=== PATIENT | female | born 1960 | race Caucasian/White ===

== ENCOUNTER → 2020-07-04 15:29 | Outpatient (CLI) | payer BC, SELFPAY ==
--- NOTE | ~2020-07-04 | XR_ITS ---
XR_CERV2-3V_CR DATE: 07/04/2020 16:41 INDICATION: Neck pain TECHNIQUE: AP, open-mouth, lateral, swimmer views COMPARISON: None FINDINGS: There is straightening of the cervical spine. C1 and C2 are normally aligned and the odontoid process is intact. No fracture or dislocation or lock ed facet or prevertebral soft tissue swelling. There is mild retrolisthesis and mild degenerative disc disease at C3-4. Mild degenerative disc disease at C4-5. Moderate degenerative disc disease and anterior and posterior spurring at C5-6 and C6-7. IMPRESSION: Multilevel degenerative disc disease, associated mild retrolisthesis at C3-4 Reviewed, dictated and finalized at Location A. Reviewed, dictated and finalized at location A. IMPRESSION: Multilevel degenerative disc disease, associated mild retrolisthesi s at C3-4
--- NOTE | ~2020-07-04 | XR_ITS ---
XR lumbar spine 2-3V DATE: 07/04/2020 16:41 INDICATION: Low back pain TECHNIQUE: Standing AP and lateral and coned lateral lumbosacral views COMPARISON: None FINDINGS: Diffuse osteopenia. Status post lower lumbar laminectomy and posterior and interbody spinal fusion at L3-S1. No fracture or bone destruction is evident. The sacroiliac joints are unremarkable. Status post bilateral tubal ligation. IMPRESSION: Diffuse osteopenia Status post lower lumbar laminectomy and posterior and interbody spinal fusion at L3-S1 Reviewed, dictated and finalized at location A.
== END ==
PROVIDERS: PCP Neurological Surgery; Visit Provider Neurological Surgery
DX: M50.31 Other cervical disc degeneration, high cervical region (principal); M85.88 Other specified disorders of bone density and structure, other site; Z98.1 Arthrodesis status
CPT/HCPCS: 72040; 72100

== ENCOUNTER → 2021-08-15 14:07 | Outpatient (CLI) | payer BC, SELFPAY ==
--- NOTE | ~2021-08-15 | XR_ITS ---
XR lumbar spine min 4V DATE: 08/15/2021 15:06 INDICATION: Low back pain TECHNIQUE: Standing AP and lateral views. Standing flexion and extension lateral views. COMPARISON: 07/04/2020 lumbar spine FINDINGS: Status post lower lumbar laminectomy and posterior and interbody surgical fusion at L3-S1. No instability is noted on flexion or extension. Normal alignment of the lumbar spine. No fracture or bone destruction is detected. Mild degenerative disc disease at L1-2 and L2-3. The sacroiliac joints are intact. Diffuse osteopenia. Bilateral tubal ligation. IMPRESSION: Status post lower lumbar laminectomy and posterior and interbody spinal fusion at L3-S1; no fracture, dislocation or instability is evident Osteopenia Mild degenerative disc disease at L1-2 and L2-3 Reviewed, dictated and finalized at location B. IMPRESSION: Status post lower lumbar laminectomy and posterior and interbody sp inal fusion at L3-S1; no fracture, dislocation or instability is evident Osteopenia Mild degenerative disc disease at L1-2 and L2-3
== END ==
PROVIDERS: PCP Internal Medicine; Visit Provider Neurological Surgery
DX: M54.50 Low back pain, unspecified (principal); Z98.890 Other specified postprocedural states; Z98.1 Arthrodesis status; M85.88 Other specified disorders of bone density and structure, other site; M51.36 Other intervertebral disc degeneration, lumbar region
CPT/HCPCS: 72110

== ENCOUNTER → 2021-09-19 10:43 | Outpatient (CLI) | payer BC, SELFPAY ==
--- NOTE | ~2021-09-19 | MM_ITS ---
EXAMINATION: MM screening ye BI w luisana HISTORY: Screening TECHNIQUE: Craniocaudal and mediolateral oblique 3-D tomosynthesis images were obtained and synthetic 2-D images were generated. CAD analysis was submitted and interpreted. COMPARISON: Comparison to multiple prior studies sequentially, with oldest reviewed study dated 03/30. BREAST PARENCHYMAL COMPOSITION: There are scattered areas of fibroglandular density. FINDINGS: There is no evidence of suspicious mass, calcification, or architectural distortion to sugg est malignancy in either breast. There has been no suspicious interval change. IMPRESSION: 1. No mammographic evidence of malignancy. 2. Recommend routine screening mammography in one year. BI-RADS Category 1: Negative Reviewed, dictated and finalized at location A.
== END ==
PROVIDERS: PCP Internal Medicine; Visit Provider Internal Medicine
DX: Z12.31 Encounter for screening mammogram for malignant neoplasm of breast (principal)
CPT/HCPCS: 77063; 77067

== ENCOUNTER → 2021-09-19 14:01 | Outpatient (CLI) | payer BC, SELFPAY ==
--- NOTE | ~2021-09-19 | MR_ITS ---
EXAMINATION: MR lumbar spine wo/w con DATE: 09/19/2021 14:49 INDICATION: Other intervertebral disc degeneration, lumbar spine. TECHNIQUE: Magnetic resonance imaging (MRI) of the lumbar spine was performed without and with 20 mL MultiHance intravenous contrast. COMPARISON: Lumbar spine radiograph 08/15/2021 FINDINGS: Bone alignment is normal. Vertebral body heights are normal. There are changes of anterior and posterior fusion procedures from L3 to S1 with interbody devices and pedicle screws. There are la minectomies at L4 and L5. Intervertebral disc heights are normal. The distal spinal cord signal inten sity is normal. The conus medullaris is at L1. The following disc levels are specifically discussed: L1-L2: There is a left foraminal protrusion. There is mild bilateral facet joint osteoarthritis. Ther e is mild left neural foraminal stenosis. There is no central canal stenosis. L2-L3: The disc is bulging. There is mild bilateral facet joint osteoarthritis. There is mild bilater al neural foraminal stenosis. There is no central canal stenosis. L3-L4: There is mild right facet joint hypertrophy. There is mild right neural foraminal stenosis. Th ere is no central canal stenosis. L4-L5: There is mild right facet joint hypertrophy. There is mild bilateral neural foraminal stenosis . There is no central canal stenosis. L5-S1: There is mild bilateral facet joint hypertrophy. There is mild bilateral neural foraminal sten osis. There is mild central canal stenosis with posterior decompression. IMPRESSION: 1. Mild lumbar spondylosis. 2. Anterior and posterior fusion procedures from L3 to S1. Reviewed, dictated and finalized at location A.
== END ==
PROVIDERS: Visit Provider Neurological Surgery
DX: M51.36 Other intervertebral disc degeneration, lumbar region (principal); M47.816 Spondylosis without myelopathy or radiculopathy, lumbar region; Z98.1 Arthrodesis status
CPT/HCPCS: 72158; A9577

== ENCOUNTER → 2023-03-26 13:14 | Outpatient (CLI) | payer BC, SELFPAY ==
--- NOTE | ~2023-03-26 | MM_ITS ---
EXAMINATION: MM screening [facility] BI w luisana HISTORY: Screening mammogram TECHNIQUE: Craniocaudal and mediolateral oblique 3-D tomosynthesis images were obtained and synthetic 2-D images were generated. CAD analysis was submitted and interpreted. COMPARISON: 09/19/2021 bilateral screening mammogram BREAST PARENCHYMAL COMPOSITION: The breasts are almost entirely fatty. FINDINGS: Approximately 6 mm circumscribed low-density opacity is noted in the anterior aspect of the lower inner quadrant of the left breast near the inferomedial left subareolar area. Diagnostic left mammogram and targeted left breast ultrasound examination are recommended. 4 mm circumscribed low-density opacity is noted anteriorly in the lower outer quadrant of the right b reast. Diagnostic right mammogram and targeted right breast ultrasound examination are recommended. No significant new or developing density, architectural distortion, malignant calcification, skin thi ckening or retraction of either breast is noted otherwise. IMPRESSION: 1. 6 mm circumscribed mass near the inferomedial subareolar area of left breast 2. 4 mm circumscribed opacity in the anterior lower outer right breast 3. Bilateral diagnostic mammography and bilateral targeted breast ultrasound examination are recommen ded. BI-RADS Category 0: Incomplete: Needs additional imaging evaluation. Reviewed, dictated and finalized at location A. UTER SECURITY SPECIALIST IMPRESSION: 1. 6 mm circumscribed mass near the inferomedial subareolar area of left breast 2. 4 mm circumscribed opacity in the anterior lower outer right breast 3. Bilateral diagnostic mammography and bilateral targeted breast ultrasound ex amination are recommended. BI-RADS Category 0: Incomplete: Needs additional imaging evaluation.
== END ==
PROVIDERS: PCP Internal Medicine; Visit Provider Obstetrics & Gynecology Gynecology
DX: Z12.31 Encounter for screening mammogram for malignant neoplasm of breast (principal)
CPT/HCPCS: 77063; 77067

== ENCOUNTER 2023-04-25 09:25 | Outpatient (CLI) | payer BC, SELFPAY ==
--- NOTE | ~2023-04-25 | MMUS_ITS ---
EXAMINATION: MM diagnostic ye BI w luisana, US breast BI limited HISTORY: 6 mm left and 4 mm right circumscribed mammographic opacities reported on March 26, 2023 b ilateral screening mammogram TECHNIQUE: Additional 3-D tomosynthesis images of both breasts were performed and synthetic 2-D image s were generated. CAD analysis was submitted and interpreted. High resolution targeted bilateral pankaj st ultrasound was performed. COMPARISON: March 26, 2023 bilateral screening mammogram FINDINGS: MAMMOGRAPHIC FINDINGS: There is a 4 mm circumscribed low-density opacity in the anterior outer mid right breast. There is an approximately 7 mm circumscribed low-density opacity in the inferomedial left subareolar area. Both of these lesions have benign mammographic features. Sonographic correlation was obtained. Otherwise no suspicious mass, architectural distortion, malignant calcification, skin thickening or r etraction of either breast is detected. ULTRASOUND: Right breast targeted ultrasound: 9:00 10 cm from nipple: Oval 2.4 x 2.8 x 3.6 mm circumscribed sonolucency without internal vascularit y or posterior shadowing, likely a benign cyst Left breast targeted ultrasound: 8-9:00 subareolar area: 7 x 8 mm circumscribed sonolucency without internal vascularity, with through transmission, consistent with benign simple cyst IMPRESSION: 1. Bilateral benign cysts; no evidence of malignancy 2. Routine annual mammographic screening is recommended BI-RADS Category 2: Benign finding(s). Reviewed, dictated and finalized at location A. Y DRY OPERATOR IMPRESSION: 1. Bilateral benign cysts; no evidence of malignancy 2. Routine annual mammographic screening is recommended BI-RADS Category 2: Benign finding(s).
== END 2023-04-25 09:26 ==
PROVIDERS: PCP Obstetrics & Gynecology Gynecology; Visit Provider Obstetrics & Gynecology Gynecology
DX: R92.8 Other abnormal and inconclusive findings on diagnostic imaging of breast (principal)
CPT/HCPCS: 76642; 77062; 77066; G0279

== ENCOUNTER 2023-09-10 12:30 | Outpatient (CLI) | payer BC, SELFPAY ==
--- NOTE | ~2023-09-10 | DEXA_ITS ---
Bone Density Report Name: RAMOS FITZGERALD Age: 63 Sex: Female Ethnicity: White Date of : 1960 Indication: postmenopausal; screening for osteoporosis; height loss; history of glucocorticoids; Referring Provider: GRACE MENDIOLA Study: Bone densitometry was performed. Exam Date: September 10, 2023 Accession number: [id number] Bone Density: Region BMD T-score Z-score Classification AP Spine(L1, L2) 1.114 1.2 2.6 Normal Femoral Neck (Left) 0.785 -0.6 0.8 Normal Total Hip (Left) 1.030 0.7 1.7 Normal Femoral Neck (Right) 0.814 -0.3 1.0 Normal Total Hip (Right) 1.023 0.7 1.7 Normal Total Hip Mean 1.027 0.7 1.7 Normal World Health Organization criteria for BMD impression classify patients as: Normal (T-score at or above -1.0), Osteopenia (T-score between -1.0 and -2.5), or Osteoporosis (T-score at or below -2.5). 10-year Fracture Risk: FRAX not reported because: All T-scores for Spine Total, Hip Total, Femoral Neck at or above -1.0 Clinical Information Provided by Patient: Has taken Glucocorticoids Has used the following medications: Vitamin D Patient maximum height was 69.0 Menopause Age: 43 Drinks caffeinated beverages Onset of menses at age 14 Number of children 2 Impression: The patient has normal bone mass. The patient has risk factors, including: history of glucocorticoid therapy. Discussion: BONE DENSITY IS ABOVE THE MINIMUM DESIRABLE LEVEL AT ALL SKELETAL SITES TESTED. This patient?s bone mineral density is above the minimum desirable level (T-score -1.0 or better) at all sites measured. The patient should follow a healthful lifestyle (good nutrition with adequate calcium and vitamin D, and appropriate weight-bearing exercise). Follow-Up: Consider repeating this study in 5 years or sooner if there is some new clinical indication. Reported by: LAYO on 09/10/2023 1:03:00 PM. Reviewed, dictated and finalized at location AStevo SANTO
== END 2023-09-10 12:31 | disposition home or self-care (01) ==
LOC: ANHIMG 12:30
PROVIDERS: Visit Provider Advanced Practice Midwife
DX: Z13.820 Encounter for screening for osteoporosis (principal); Z78.0 Asymptomatic menopausal state
CPT/HCPCS: 77080

== ENCOUNTER 2024-03-27 15:45 | Outpatient (CLI) | payer BC, SELFPAY ==
--- NOTE | ~2024-03-27 | MM_ITS ---
EXAMINATION: MM screening ye BI w luisana HISTORY: Screening TECHNIQUE: Craniocaudal and mediolateral oblique 3-D tomosynthesis images were obtained and synthetic 2-D images were generated. CAD analysis was submitted and interpreted. COMPARISON: Comparison to multiple prior studies sequentially, with oldest reviewed study dated 03/30. BREAST PARENCHYMAL COMPOSITION: Not dense: There are scattered areas of fibroglandular density. FINDINGS: There is no evidence of suspicious mass, calcification, or architectural distortion to sugg est malignancy in either breast. There has been no suspicious interval change. IMPRESSION: 1. No mammographic evidence of malignancy. 2. Recommend routine screening mammography in one year. BI-RADS Category 1: Negative Reviewed, dictated and finalized at location B. ING TEACHER
--- OUTSIDE RECORDS SUMMARY | 2024-03-27 15:52 | XMS_ITS | Encounter Summary ---
Author Organization [facility] Facility Care Team Providers Care Aegis Console Operator Track Name Role Phone Vita Beyer MD Primary Care Provider + [phone] Vita Beyer MD Unavailable [phone] Catrachito Velasco MD Unavailable [phone] Man Saunders MD Unavailable [phone] Tooite Pinzon MD Unavailable [phone] Encounter Details Date Type Department Care Team (Latest Contact Info) Description 02/13/2017 Orders Only [facility] CLINCONV ProviderBrennen MD [address] [place] [id number] Social History Tobacco Use Types Packs/Day Years Used Date Smoking Tobacco: Every Day Comments Unknown Sex and Gender Information Value Date Recorded Sex Assigned at Not on file Legal Sex 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 us Historical Provider Final Res ult documented in this encounter Visit Diagnoses Not on filedocumented in this encounter Additional Health Concerns Infection Onset Date Last Indicated Resolved Time COVID: Suspected 05/26/2019 05/26/2019 05/27/2019 8:35 AM CDT Respiratory Infection (JOSEPH), contact + droplet Comment:Automatically added due to negative COVID-19 result. 05/27/2019 05/27/2019 06/10/2019 3:0 5 AM CDT documented as of this encounter Care Teams Aegis Console Operator Track Relationship Specialty Start Date End Date Vita Beyer MD [address] [place] [phone] PCP - General 12/05/17 Vita Beyer MD [address] [place] [address] 12/05/17 10/27/19 Catrachito Velasco MD [address] [place] [phone] Dermatology 10/28/19 Man Saunders MD [address] [address] Consulting Physician Obstetrics and Gynecology 10/28/19 Tootie Pinzon MD [address] [facility] [address] [facility] [address] [place] [address] Referring Physician Gynecology 11/06/23 documented as of this encounter
--- OUTSIDE RECORDS SUMMARY | 2024-03-27 15:52 | XMS_ITS | Encounter Summary ---
Author Organization [facility] Facility Care Team Providers Care Account Executive Healthcare Name Role Phone Vita Beyer MD Primary Care Provider + [phone] Vita Beyer MD Unavailable [phone] Catrachito Velasco MD Unavailable [phone] Man Saunders MD Unavailable [phone] Tootie Pinzon MD Unavailable [phone] Encounter Details Date Type Department Care Team (Latest Contact Info) Description 03/15/2016 Orders Only MMG CLINCONV ProviderBrennen MD [address] [place] [address] Social History Tobacco Use Types Packs/Day Years Used Date Smoking Tobacco: Never Assessed Comments Unknown Sex and Gender Information Value Date Recorded Sex Assigned at Not on file Legal Sex Female 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 us Historical [...] documented as of this encounter Care Teams Account Executive Healthcare Relationship Specialty Start Date End Date Vita Beyer MD [address] [place] [id number] PCP - General 12/05/17 Vita Beyer MD [address] [place] [address] 12/05/17 10/27/19 Catrachito Velasco MD [address] [place] [phone] Dermatology 10/28/19 Man Saunders MD [address] [address] Consulting Physician Obstetrics and Gynecology 10/28/19 Tootie Pinzon MD [address] [facility] [address] [place] [address] Referring Physician Gynecology 11/06/23 documented as of this encounter
--- OUTSIDE RECORDS SUMMARY | 2024-03-27 15:52 | XMS_ITS | Patient Health Summary ---
Author Organization [facility] [employer] Address [address] [place] [address] Care Team Providers Care Pork Cutlet Maker Name Role Phone Unavailable Primary Care Provider Unavailabl e Note from [facility],non-owned Affiliates and Associated Physician Practices is amultiple site organization consisting of ambulatory clinics and hospital sitesin [place], [place], [place] and [place]. This disclosure is being madepursuant to the Care Everywhere program and may not contain all information available regarding this patient. Last updated 17.[facility] Allergies No known active allergies Medications * Be aware that medications may not be up to date on this document. Alwaysverify current medications with the patient. * Ustekinumab (STELARA SC) Social History Tobacco Use Types Packs/Day Years Used Date Smoking Tobacco: Every Day Smokeless Tobacco: Never Sex and Gender Information Value Date Recorded Sex Assigned at Not on file Gender Identity Not on file Sexual Orientation Not on file Last Filed Vital Signs Vital Sign Reading Time Taken Comments Blood Pressure 136/84 04/24/2019 3:03 PM SOLUTION ANALYST Pulse 94 04/24/2019 3:03 PM SOLUTION ANALYST Temperature 36.8 C (98.2 F) 04/24/2019 3:03 PM SOLUTION ANALYST Respiratory Rate 20 04/24/2019 3:03 PM SOLUTION ANALYST Oxygen Saturation 98% 04/24/2019 3:03 PM SOLUTION ANALYST Inhaled Oxygen Concentration - - Weight 97.5 kg (215 lb) 04/24/2019 3:03 PM SOLUTION ANALYST Height 175.3 cm (5' 9 ) 04/24/2019 3:03 PM SOLUTION ANALYST Body Mass Index 31.75 04/24/2019 3:03 PM SOLUTION ANALYST Procedures * INFLUENZA A+B - POINT OF CARE (AMB)(Performed 04/24/2019) Performed for Upper respiratory tract infection, unspecified type Results * INFLUENZA A+B - POINT OF CARE (AMB) (04/24/2019) Influenza A Antigen Rapid Negative Negative Influenza B Antigen Rapid Negative Negative Influenza Internal Control present NEGATIVE - POSITIVE Influenza Lot Number [id number] Influenza Expiration Date Other NASOPHARYNGEAL SWAB / Unknown 04/24/2019 Faustino Deutsch DIRECTOR OF SECURITIES AND REAL ESTATE-MINI [facility]ACCAR[facility] DEALER LAB - POINT OF CARE ORDERABLES
--- OUTSIDE RECORDS SUMMARY | 2024-03-27 15:52 | XMS_ITS | Referral Summary ---
Author Organization [facility] [employer] Address [address] [place] [address] Care Team Providers Care Yard Worker Name Role Phone Unavailable Primary Care Provider Unavailabl e Source Comments [facility] [employer]non-owned Affiliates and Associated Physician Practices is amultiple site organization consisting of ambulatory clinics and hospital sitesin [place], [place], [place] and [place]. This disclosure is being madepursuant to the Care Everywhere program and may not contain all information available regarding this patient. Last updated 17.[facility] [employer] Allergies No known active allergies Medications * Be aware that medications may not be up to date on this document. Alwaysverify current medications with the patient. Medication Sig Dispensed Refills Start Date End Date Status Ustekinumab (STELARA [place]) Active Social History Tobacco Use Types Packs/Day Years Used Date Smoking Tobacco: Every Day Smokeless Tobacco: Never Sex and Gender Information Value Date Recorded Sex Assigned at Not on file Gender Identity Not on file Sexual Orientation Not on file Last Filed Vital Signs Vital Sign Reading Time Taken Comments Blood Pressure 136/84 04/24/2019 3:03 PM DIRECTOR OF MATH Pulse 94 04/24/2019 3:03 PM DIRECTOR OF MATH Temperature 36.8 C (98.2 F) 04/24/2019 3:03 PM DIRECTOR OF MATH Respiratory Rate 20 04/24/2019 3:03 PM DIRECTOR OF MATH Oxygen Saturation 98% 04/24/2019 3:03 PM DIRECTOR OF MATH Inhaled Oxygen Concentration - - Weight 97.5 kg (215 lb) 04/24/2019 3:03 PM DIRECTOR OF MATH Height 175.3 cm (5' 9 ) 04/24/2019 3:03 PM DIRECTOR OF MATH Body Mass Index 31.75 04/24/2019 3:03 PM DIRECTOR OF MATH Plan of Treatment Not on file
--- OUTSIDE RECORDS SUMMARY | 2024-03-27 15:52 | XMS_ITS | Clinical Summary ---
Author Organization [facility] Healthcare Address [address] [place] [address] Care Team Providers Care Medical Transcriber Name Role Phone Vita Beyer MD Primary Care Provider [phone] Catrachito Velasco MD Unavailable [phone] Man Saunders MD Unavailable [phone] Tootie Pinzon MD Unavailable [phone] Allergies Active Allergy Reactions Criticality Noted Date Comments Amoxicillin-Pot Clavulanate Nausea & Vomiting Low 0 10/28/2019 Medications multivitamin tabletIndicatio ns:Vitamin Deficiency Prevention daily. 3 Active Skyrizi 150 mg/mL pen injector 1 Active biotin 1 mg capsule Take by mouth Active acidophilus-pec tin, citrus 100 million cell-10 mg capsule Take by mouth Active SEMAGLUTIDE SUBQ Inject under the skin Active hydroCHLOROthia zide (HYDRODIURIL) 25 mg tabletIndicatio ns:Hypertension , essential Take 1 tablet (25 mg total) by mouth daily 90 tablet 3 4 01/13/20 25 Active semaglutide (Rybelsus) 14 mg tablet Take 1 tablet (14 mg total) by mouth daily Active magnesium gluconate 200 mg tabletIndicatio ns:hypomagnesem ia 1 tablet (200 mg total) Active citalopram (CeleXA) 20 mg tabletIndicatio ns:KERRIE (generalized anxiety disorder) TAKE 1 TABLET BY MOUTH DAILY 90 tablet 3 5 Active citalopram (CeleXA) 20 mg tabletIndicatio ns:KERRIE (generalized anxiety disorder) Take 1 tablet (20 mg total) by mouth daily 90 tablet 3 4 03/03/19 25 Discontinued Active Problems Problem Noted Date Diagnosed Date History of colon polyps 01/27/2024 Overview (01/27/2024): 01/23/2024 Dr. Zaldivar Colonoscopy: A. Colon, ascending, polyp, polypectomy: -Tubular adenoma. B. Colon, polyp at 40 cm, polypectomy: -Sessile serrated adenoma/polyp. C. Rectum, polyp x2, polypectomy: -Hyperplastic polyps. Screening for colon cancer 12/30/2023 Herpes simplex 11/06/2023 Overview (11/06/2023): 1st episode, L sacral root 11/06/2023 Assessment & Plan (11/06/2023 9:09 AM CDT): new problem, left sacral area. first episode. rx valtrex 1000 mg q 12 x 7d, call if has recurrence for 500 mg q12 x 3 days per recurrence Urge incontinence of urine 11/02/2022 Assessment & Plan (11/02/2022 9:29 AM CDT): Wearing a pad Do the kegels Lose weight See [employer]ER Hypertension, essential 10/26/2020 Overview (10/31/2021): July 2020 Myocardial perfusion Stress test Oct 21, 2020, Dr Phillips NORMAL Amlodipine started 5mg 10/2020, now off amlodpine Only on HCTZ Released by Dr Phillips Interpretation summary: 1. No reversible or fixed perfusion defects to indicate myocardial ischemia or infarct 2. Normal left ventricular ejection fraction 3. No evidence of transient ischemic dilatation 4. No EKG changes diagnostic for ischemia post exercise testing at 7 METS, 6 minutes on the Maximo protocol, 100 % age predicted maximum heart rate. 5. Lee treadmill score of +7 indicated of low annual risk for major adverse cardiac events. 6. No clinically significant arrhythmias noted with exercise. 7. Hypertensive response to exercise Assessment & Plan (11/02/2022 9:21 AM CDT): Bp controlled Cont same rx regimen Assessment & Plan (10/31/2021 9:21 AM CDT): now off amlodpine Only on HCTZ Released by Dr Phillips BP controlled Cont same Down 30 lbs Assessment & Plan (10/26/2020 9:30 AM CDT): Today BP is good at 128/78 with recent start of amlodipine 5mg only Ff low sodium diet Ff up with dr Phillips next week KERRIE (generalized anxiety disorder) 10/26/2020 Overview (10/31/2021): Hx of panic attacks On celexa therapy Assessment & Plan (11/06/2023 9:15 AM CDT): Hx of panic attacks Feels lately a little more anxious Worrier Cont on celexa theapy at same dose Reluctant to increase the dosage, trying to lose wt Assessment & Plan (11/02/2022 9:32 AM CDT): Cont on celexa theapy, stable and wishes to continue Assessment & Plan (10/31/2021 7:56 AM CDT): Given hx of panic attacks, cont on celexa therapy Assessment & Plan (10/26/2020 9:38 AM CDT): Might have contributed to elevated BP and symptoms Did not take or need the anxiolytic Better now Continue on celexa 20mg daily Abnormal glucose 10/26/2020 Overview (10/26/2020): Biological father had DM, stroke and psoriasis Assessment & Plan (11/06/2023 9:12 AM CDT): Resolved A1c is normal now Continue to try and avoid sugars and diet. Exercise and work on weight loss. Assessment & Plan (11/02/2022 9:32 AM CDT): Normal A1c 5.5 Now on mounjaro thru wt loss clinic Assessment & Plan (10/31/2021 9:22 AM CDT): fam hx of DM in biologic father a1c 5.9 Cont to Exercise and lose wt Was on modified keto diet, likely why chol increased some Ff mediterranean diet Avoid sugars in diet Assessment & Plan (10/26/2020 9:57 AM CDT): Cont to trend, repeat a1c Work on wt loss Cigarette nicotine dependence in remission 08/30 Assessment & Plan (11/02/2022 9:33 AM CDT): Quit in 2019 The patient is at HIGH RISK for developing lung cancer. Patient has met inclusion criteria for sceening. Patient is within the age of 55 to 77. Smoking status determined. The patient has a smoking history of at least 30 pack years. Patient is asymptomatic and has no signs of lung cancer at this time. We have discussed the pros and cons of lungs cancer screening. The patient is wanting cancer treatment should it be discovered. 1.Patient was made aware that lung nodules are common in smokers and maybe found during the exam. Additional observation or testing may be necessary and most patients were call Back will not be determined to have lung cancer. A small number of people will need a biopsy but this is not common. A small number people will have a biopsy that may have a complication, but this is rare. 2. There is a potential for over treatment. Lung cancer screening make find a lung cancer that may not cause symptoms are require treatment during the patient's lifetime. However lung cancers may be lethal if not treated. 3. Low-dose CT scanning will expose the patient to a small amounts of radiation. The dose is equal to the normal amount of environmental radiation people experience over 6 month period. In this case, we have determined to find the benefits of screening to outweigh the small risk of radiation exposure. There is a very small chance that an annual Low Dose CT scan over many years could cause cancer to develop. 4. It is important to adhere to the Annual Lung Cancer Low-dose CT screening, the patient is able and willing to undergo diagnosis treatment should cancer be identified. 5. Smoking abstinence intervention is important. The patient is counseled on the importance of maintaining cigarette smoking abstinence if a former smoker and the importance of smoking cessation if a current smoker. Current smoker will be provided with information about smoking cessation interventions. 6. Detection of lung cancer could impact other comorbidities (coexisting illnesses). The patient is willing to undergo diagnosis and treatment for lung cancer. After this discussion above the Patient is agreeable to proceed with screening. An order will be placed for a low-dose CT for lung cancer screening. Assessment & Plan (10/26/2020 9:49 AM CDT): No longer smoking Quit 10/16/2019 Family history of coronary artery disease 2020 History of COVID-19 02/21/2020 Overview (03/09/2020): Tested positive 02/29/2020 Gi sx and some uri but resolved Assessment & Plan (10/26/2020 9:55 AM CDT): No residuals resolved History of lumbar surgery 06/09/2018 Overview (06/09/2018): 10/29/2017 Dr Causey, lumbar disc surgery, L3-L5 . Wearing a bone growth stimulator daily. Assessment & Plan (10/26/2020 9:55 AM CDT): Continues with back pain. No longer using the bone growth stimulator Surgery 10/29/2017 Dr Causey, 3 yrs now since surgery Likely this is as good its going to get, hoping once the psoriatic arthritis gets controlled, perhaps her back pain will improve Assessment & Plan (06/09/2018 12:11 PM CDT): Symptoms have improved significantly. Sciatica resolved. Good back care. Exercise and wt loss. Class 1 obesity due to exces s calories with serious comorbidity and body mass index (BMI) of 34.0 to 34.9 in adult 06/09/2018 Assessment & Plan (11/06/2023 9:12 AM CDT): Cont wt loss with ozempic therapy, down 40 lbs and continues to lose wt Cont under [facility] program for wt loss Did not respond to mounjaro, did not lose wt Assessment & Plan (11/02/2022 9:31 AM CDT): Worsening Weight is back up again Work on wt loss Exercise regularly, try swimming if the does not affect jts Patient is on mounjaro therapy just started early 10/2022 thru the wt loss clinic Expect wt to drop Assessment & Plan (10/31/2021 9:19 AM CDT): Improving Down 30 lbs Cont modified keto diet and exercise Control food poritons Assessment & Plan (10/26/2020 9:18 AM CDT): Work on wt loss Exercise regularly Improve diet and food portions At risk for DM and other complications related to obesity Assessment & Plan (10/28/2019 11:18 AM CDT): Work on attempts to lose weight about 1 lb a week. Join a wt loss program if necessary. Try to reach for BMI under 30. Exercise regularly, Limit carbs and sugars. Control portion intake. Consume 6-8 8oz glasses of water daily. BMI Follow-up includes: nutrition counseling, exercise counseling and education provided. Assessment & Plan (06/09/2018 12:17 PM CDT): Work on attempts to lose weight about 1 lb a week. Join a wt loss program if necessary. Try to reach for BMI under 30. Exercise regularly, Limit carbs and sugars. Control portion intake. Consume 6-8 8oz glasses of water daily. Annual physical exam 06/09/2018 Assessment & Plan (11/06/2023 9:10 AM CDT): Reviewed previous labs and diagnostic test results. Chronic medical problems evaluated and management plans discussed with the patient. Prescription medications, supplements, vitamins and immunizations reviewed. Wear seatbelts. Use sunscreen. Discussed healthy diet and disease prevention. Recommend moving towards a plant based diet. Discussed importance of scheduling recommended screening tests. Discussed importance of regular physical examinations for health maintenance. Assessment & Plan (11/02/2022 9:14 AM CDT): Reviewed previous labs and diagnostic test results. Chronic medical problems evaluated and management plans discussed with the patient. Prescription medications, supplements, vitamins and immunizations reviewed. Wear seatbelts. Use sunscreen. Discussed healthy diet and disease prevention. Recommend moving towards a plant based diet. Discussed importance of scheduling recommended screening tests. Discussed importance of regular physical examinations for health maintenance. Discussed importance of a living will, advanced directives and establishing or updating healthcare power of traffic law attorney document and providing our office with a copy. Assessment & Plan (10/31/2021 7:54 AM CDT): Update preventive care tdap due Mammogram due Reviewed previous labs and diagnostic test results. Chronic medical problems evaluated and management plans discussed with the patient. Prescription medications, supplements, vitamins and immunizations reviewed. Wear seatbelts. Use sunscreen. Discussed healthy diet and disease prevention. Recommend moving towards a plant based diet. Discussed importance of scheduling recommended screening tests. Discussed importance of regular physical examinations for health maintenance. Discussed importance of a living will, advanced directives and establishing or updating healthcare power of traffic law attorney document and providing our office with a copy. Assessment & Plan (10/26/2020 9:40 AM CDT): Reviewed previous labs and diagnostic test results. Chronic medical problems evaluated and management plans discussed with the patient. Prescription medications, supplements, vitamins and immunizations reviewed. Wear seatbelts. Use sunscreen. Discussed healthy diet and disease prevention. Recommend moving towards a plant based diet. Discussed importance of scheduling recommended screening tests. Discussed importance of regular physical examinations for health maintenance. Assessment & Plan (10/28/2019 11:17 AM CDT): Wear sunscreen with SPF over 50 while outdoors. Wear sun protective head wear and clothing if planning to stay outdoors exposed to the direct sunlight for extended hours. Wear seatbelts while in a vehicle. Do not TEXT and DRIVE Do not DRINK and DRIVE. Drink responsibly Follow a heart healthy diet and lifestyle. Consume 5-7 servings of fruits and vegetables a day.. Such as the Mediterranean Diet. Maintain/attain normal body weight. Exercise regularly, minimum 20 mins 3 days a week to reduce cardiovascular healthy. Maintain good sleep schedule and sleep habits I recommend that all patients follow a diet that is high in fruits and vegetables and low in processed foods such as sugar and foods that are made with white flour. I recommend using beneficial fats such as olive oil, nuts, seeds and berries and avoiding saturated animal fats. Please stay physically active to the extent that you are physically able to. Test results: if you have not received communication about test results within 7 days of the test being performed, please contact the office. I strongly encourage [employer] sign ups. It can facilitate communication flow. Please contact the office for instructions on signing up. Consider getting Shingrix (shingles vaccine). This is a 2-shot series with each injection given 2-6 months apart. You can obtain the vaccine at most major pharmacies without a prescription Assessment & Plan (06/09/2018 12:26 PM CDT): Wear sunscreen while outdoors. Wear seatbelts while in a vehicle. Do not text and drive. Follow a heart healthy diet and lifestyle. Consume 5-7 servings of fruits and vegetables a day. Maintain/attain normal body weight. Maintain good sleep schedule and sleep habits. I recommend that all patients follow a diet that is high in fruits and vegetables and low in processed foods such as sugar and foods that are made with white flour. I recommend using beneficial fats such as olive oil, nuts, seeds and berries and avoiding saturated animal fats. Please stay physically active to the extent that you are able. Test results: if you have not received communication about test results within 7 days of the test being performed, please contact the office. Consider getting Shingrix (shingles vaccine). This is a 2-shot series with each injection given 2-6 months apart. 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 Dr Ritchie dermatology tried Cosentyx (did not work well and became non formulary), then Otezla (worsened) To try Skyrizi next Derm: Dr Ritchie Assessment & Plan (11/06/2023 5:38 PM CDT): Stable Dr Diaz torres is now managing,stable on rx Skyrizi injections, dong better than previoius biologics tried in the past: Humira (axillary lymph node complication), methotrexate (pills made her sick, osteoporosis of the jaw), Cosentyx, (did not work well and became non formulary), Otezla (worsened lesions) Assessment & Plan (10/26/2020 9:48 AM CDT): Worsening Dr Diaz torres is now managing, plans to change Otezla to Skyrizi Assessment & Plan (10/28/2019 11:39 AM CDT): Stable on cosentyx therapy Cont under derm dr ritchie Benign paroxysmal positional vertigo 07/13/2015 High blood cholesterol level 07/13/2015 Overview (11/02/2022): July 2020 Myocardial perfusion Stress test Oct 21, 2020, Dr Phillips NORMAL statin in past, made her sick (nauseaous) Assessment & Plan (11/02/2022 9:30 AM CDT): No labs this yr, will order next yr, patient working on diet and wt loss Assessment & Plan (10/31/2021 9:24 AM CDT): HDL is better Change mod keto diet, healthier protein sources Exercise High fiber diet Assessment & Plan (06/09/2018 12:18 PM CDT): Order lipids, will call if needs to start a statin med or just change up diet. Will calculate cv risk score once labs available. Stop smoking all together that affects chol level. Mild episode of recurrent major depressive disor phyllis 07/12/2015 Overview (10/31/2021): On celexa 20mg Hx of panic attacks Assessment & Plan (11/06/2023 9:13 AM CDT): Stable on celexa therapy Hx of panic attacks Cont same regimen Assessment & Plan (11/02/2022 9:29 AM CDT): Stable on celexa therapy Hx of panic attacks Cont same regimen Assessment & Plan (10/31/2021 7:55 AM CDT): Stable on celexa therapy Hx of panic attacks Cont same Assessment & Plan (10/26/2020 9:53 AM CDT): Stable on celexa 20mg in am and 10mg in pm, considering all her responsibilities at work and with family phq9 screen today score of 5 Wishes to continue therapy, helping Take celexa 20mg once daily see if able to just take 20 mg daily and stop the 10mg in pm Refill today Assessment & Plan (10/28/2019 11:25 AM CDT): Stable on celexa therapy Cont the same. Assessment & Plan (06/09/2018 12:17 PM CDT): Very mild, mostly anxiety. Resume celexa therapy Resolved Problems Problem Noted Date Diagnosed Date Resolved Date Urinary urgency 10/31/2021 11/06/2023 Assessment & Plan (10/31/2021 9:30 AM CDT): occly when coughs or sneezes, leaks Been doing kegels, cont to do pelvic floor exercises Keep bowels regular avoid constipation Palpitations 08/30/2020 11/06/2023 Precordial pain 08/30/2020 11/06/2023 Overview (08/30/2020): likely panic attacks. Advise counselor for CBT and vistaril prn. Would still suggest seeing cardiology given no h/o panic attacks in the past. Telehealth encounter for confirmed COVID-19 03/09/2020 10/26/2020 Assessment & Plan (03/09/2020 12:37 PM TIP MENDER): Recovered No more symptoms for over 24 hrs now Quarantined for 2 wks Plans to RTW on 03/14/2020 Letter to rtw on Saturday03/14/2020 Attn Kortney Diaz Material Engineer Fax [phone] Ok to rtw on feb. Full recovered from covid infection. Completed full 14 day quarantine period. No longer having covid symptoms. Anxiety 06/09/2018 10/26/2020 Overview (06/09/2018): Hx of celexa 40mg use Assessment & Plan (06/09/2018 12:08 PM CDT): Since anxiety is up some, will resume celexa therapy. This time will try 20mg and in 4 wks if feels 40mg dose is better ok to increase. Call at that time for new dose rx. Sciatica of left side 12/18/20162018 Overview (06/09/2018): 10/2017 Lumbar disc surgery L3-L5 Dr Causey at [facility] Assessment & Plan (06/09/2018 12:06 PM CDT): resolved Elevated blood pressure read ing without diagnosis of hypertension 07/12/2015 06/09/2018 Pain in the shoulder 07/22/2013 021 Encounters Date Type Department Care Team Description 01/30/2024 Telephone [facility] Primary Care [address] [place] [address] [place] [phone] Vita Beyer MD 01/23/2024 9:28 AM TIP MENDER Anesthesia Event [facility] [address] [place] [address] Roxana Rice MD Jobe, Jennifer R., CRNA 01/23/2024 9:00 AM TIP MENDER - 01/23/2024 9:30 AM TIP MENDER Surgery [facility] [address] [place] [address] Christian Zaldivar MD COLON REMOVAL SNARE 01/23/2024 7:55 AM TIP MENDER - 01/23/2024 11:10 AM TIP MENDER Hospital Encounter [facility] [address] [place] [address] Christian Zaldivar MD Screening for colon cancer Discharge Disposition: Discharge to home or self care 12/30/2023 Orders Only [facility] at [place] [address] [facility] [facility] [address] [place] [phone] Christian Zaldivar MD Screening for colon cancer (Primary Dx) 12/26/2023 Telephone [facility] Primary Care [address] [place] [address] Vita Beyer MD Medication Request from Last 3 Months Immunizations Name Administration Dates Next Due Influenza, Quadrivalent, Blessing l Culture-based MDCK, Preservative Free, Antibiotic Free, Intramuscular 03/05/2019 Influenza, Quadrivalent, Spl it, Preservative Free, Intramuscular 11/02/2022,10/31/2021,12/11/2017 Influenza, Trivalent, IM (MDV) 12/18/2016 Influenza, Trivalent, Preser vative Free, Intramuscular 11/06/2023,11/15/2015,12/03/2014,12/24,01/19/2013 Moderna SARS-CoV-2 Monovalen t Vaccination (12+ YRS) 04/28/2020,03/31/2020 PPD TEST 03/24/2014 Pneumococcal Conjugate PCV 13 12/20/2015 Pneumococcal Polysaccharide PPV23 01/19/2013,02/2012 Tdap 11/02/2022,08/19/2011 ZOSTER Recombinant 12/28/2019,10/28/2019 Surgical History Surgery Date Site/Laterality Comments APPENDECTOMY BREAST LUMPECTOMY TONSILLECTOMY ABLATION uterine SPINE SURGERY October 29, 2017 Medical History Medical History Date Comments Sciatica of left side 12/18/201610/2017 Rachna mbar disc surgery L3-L5 Dr Causey at [facility] Elevated blood pressure read ing without diagnosis of hypertension 07/12/2015 Palpitations Anxiety Arthritis Autoimmune disease (CMS/HCC) (HCC) 02/18/1981 psoriasis Family History * Patient is adopted Medical History Relation Name Comments Alcohol abuse Father Alber Arthritis Father Alber Diabetes Father Alber Hypertension Father Alber Psoriasis Father Alber Family history of psoriasis - (Added by TW Conv) Stroke Father Alber Family history of cerebrovascular accident - (Added by TW Conv) Heart attack Maternal Grandmother Evelyn Heart disease Maternal Grandmother Evelyn Macular degeneration Maternal Grandmother Evelyn Vision loss Maternal Grandmother Evelyn Degenerative Disk Disease Mother Family history of degenerative disc disease - (Added by TW Conv) Cancer Mother's Sister Gardenia Plunkett Heart attack Paternal Grandfather Relation Name Status Comments Father Alber Maternal Grandmother Evelyn Mother Mother's Sister Gardenia Plunkett Paternal Grandfather Social History Tobacco Use Types Packs/Day Years Used Date Smoking Tobacco: Former Cigarettes 1 41 0 10/27/1981 - 10/16/2019 Smokeless Tobacco: Never Tobacco Cessation:Counseling Given: Not Answered Comments:Quit around hubsband heart sx 10/17/19 Per telephone call for lung screen Uses vape (last vaped at 0730) Alcohol Use Standard Drinks/Week Comments Yes 0 (1 standard drink = 0.6 oz pur e alcohol) AUDIT-C Answer Date Recorded Q1: How often do you have a drink containing alcohol? Never 01/23/2024 Q2: How many drinks containi ng alcohol do you have on a typical day when you are drinking? Patient does not drink Q3: How often do you have si x or more drinks on one occasion? Never 01/23/2024 PHQ-2 Answer Date Recorded PHQ-2 Total Score (If total score is 3 or more points, staff should administer the PHQ-9) 2 11/06/2023 Personal Safety Answer Date Recorded Have you ever been in or are you currently in a harmful physical or emotional relationship or is someone making you feel afraid or unsafe? 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 Not on file Not on file Obstetrics History Last Filed Vital Signs Vital Sign Reading Time Taken Comments Blood Pressure 146/63 01/23/2024 10:30 AM TIP MENDER Pulse 63 01/23/2024 10:30 AM TIP MENDER Temperature 36.2 C (97.2 F) 01/23/2024 9:55 AM TIP MENDER Respiratory Rate 15 01/23/2024 10:30 AM TIP MENDER Oxygen Saturation 99% 01/23/2024 10:30 AM TIP MENDER Inhaled Oxygen Concentration - - Weight 105.7 kg (233 lb) 01/23/2024 8:10 AM TIP MENDER Height 175.3 cm (5' 9 ) 11/06/2023 8:28 AM CDT Body Mass Index 34.41 11/06/2023 8:28 AM CDT Plan of Treatment Health Maintenance Due Date Last Done Comments Hepatitis B Screening 1980 Cervical Cancer Screening 05/07/2016 05/08/2015, Covid-19 Vaccine ( season) 2023 04/28/2020, 03/31/2020 Breast Cancer Screening-Mammogram 03/26/2024 03/26/2023, 09/19/2021, 01/17/2016, Additional history exists Lung Cancer Screening 06/11/2024 06/11/2023, 023 Depression Screening 11/05/2024 11/06/2023, 11/06/2023, 11/02/2022, Additional history exists Regular Well Visit/Exam 18-64 11/05/2024 11/06/2023, 11/02/2022, 10/31/2021, Additional history exists Colon Cancer Screening-Colonoscopy 01/22/2027 01/23/2024, 06/09/2013 DTaP/Tdap/Td Vaccine (3 - Td or Tdap) 11/02/2032 11/02/2022, 08/19/2011 Hepatitis C Screening Completed 10/21/2012 Pneumococcal vaccine <65 Aged Out 016, 01/19/2013, 12/19/2012 No longer eligible based on patient's age to complete this topic Zoster Vaccine Completed 12/28/2019, 10/28/2019 Influenza Vaccine Completed 11/06/2023, , 10/31/2021, Additional history exists Colon Cancer Screening-CT Colonography Discontinued 01/23/2024, 06/09/2013 Colon Cancer Screening-DNA Stool Discontinued 01/23/2024, 06/09/2013 Colon Cancer Screening-FIT Discontinued 01/23/2024, Colon Cancer Screening-Sigmoidoscopy Discontinued 01/23/2024, 06/09/2013 Medical Devices Implanted Type Area Undercutter Device Identifier Shelf Expiration Date Model / Serial / Lot Cages And Rods In Lumbar L4,5 &S1 N/A: Back Procedures Procedure Name Priority Date/Time Associated Diagnosis Comments SURGICAL PATHOLOGY Routine 01/23/2024 9: 39 AM TIP MENDER Screening for colon cancer ENDO ADD ON COLON BIOPSY 01/23/2024 9:28 AM TIP MENDER Screening for colon cancer COLON REMOVAL SNARE 01/23/2024 9 :28 AM TIP MENDER Screening for colon cancer COLONOSCOPY 01/23/2024 9:[address] CHEST WO CONTRAST F/U LUNG SCREEN PROTOCOL Schedule Routine, Read Routine (OP Routine) 06/11/2023 9:04 AM CDT Cigarette nicotine dependence in remission Lung nodule seen on imaging study MAMMOGRAPHY Routine 03/26/2023 PAP SMEAR WITH HPV Routine 05/08/2015 SERUM HEPATITIS C AB Routine 10/21/2012 5:45 AM CDT from Last 3 Months or Most Recently Relevant to Health Maintenance Results * Surgical pathology (01/23/2024 9:39 AM TIP MENDER) Tissue (Colon, Biopsy) 01/23/2024 9:39 AM TIP MENDER Tissue (Polyp(s), colon/colorectal, esophageal, gastric) 01/23/2024 9:46 AM TIP MENDER Tissue (Polyp(s), colon/colorectal, esophageal, gastric) 01/23/2024 9:50 AM TIP MENDER Narrative PATHOLOGY [facility] - 01/24/2024 5:00 PM TIP MENDER [facility] Department of Pathology [address] [place] [address] Note to Patients: This report may contain a detailed description of human tissue sent by a health care provider to the laboratory for pathologic evaluation. The content of this report is essential for diagnosis and may provide important critical findings. This information may be unfamiliar to patients to review without a medical professional present. It is advised that the patient review this report in the presence of a health care provider who can answer questions and explain the details. Final Report Patient Name: RUTHIE EDDY : 1960 (Age: 63) Gender: F Address: [address] [place] [address] Hospital #: [id number] Service: Gastro Location: Patient Type: [facility] OUTPATIENT Taken: 01/23/2024 Received: 01/23/2024 Accessioned: 01/23/2024 Reported: 01/24/2024 Physician(s): Anne-Marie Payton M.D. Diagnosis: A. Colon, ascending, polyp, polypectomy: -Tubular adenoma. B. Colon, polyp at 40 cm, polypectomy: -Sessile serrated adenoma/polyp. C. Rectum, polyp x2, polypectomy: -Hyperplastic polyps. Art nEgland MD, PHD Report Electronically Reviewed and Signed Out By Art England MD, PHD 01/24/2024 17:00:32 Specimen(s) Received: A: Ascending colon polyp (cold bx) B: Polyp at 40 cm (hot snare) C: Rectal polyp x2 (hot snare) Microscopic Description: Unless gross-only is specified, the final diagnosis for each specimen is based on a microscopic examination of each tissue sample. Clinical History: The patient is a 63-year-old woman presenting for colon cancer screening. Operative procedure: Colonoscopy with biopsy. Gross Description Received in three formalin jars labeled with the patient's identifiers. A. Labeled ascending colon polyp (cold Bx) and consists of two gomez tissue fragments measuring 0.1 cm and 0.3 cm. Entirely submitted. Labeled A1. Jar 0. B. Labeled polyp at 40 cm (hot snare) and consists of a 1.0 x 0.6 x 0.6 cm gomez- red, polypoid tissue with an identifiable resection margin (inked black). The specimen is trisected and entirely submitted. Labeled B1. Jar 0. C. Labeled rectal polyp x2 (hot snare) consists of two gomez-pink tissue fragments admixed with debris, measuring 0.5 cm and 0.6 cm. Entirely submitted. Labeled C1. Jar 0. jjmhb/01/23/2024 13:08 SERGE Genao PA (ASCP) Microscopic slide review and interpretation for this case was performed at [facility], Department of Surgical Pathology, [address] [facility] [id number], [place] [address] CLIA # [id number] us Christian Zaldivar MD LAB PATHOLOGY ORDERABLES Final R esult PATHOLOGY [facility] * Colonoscopy (01/23/2024 9:27 AM TIP MENDER) Anatomical Region Laterality Modality Other Narrative Procedure Note Christian Zaldivar MD - 01/23/2024 9:27 AM CST [facility] GI ENDOSCOPY Patient Name: Ruthie Eddy Procedure Date: 01/23/2024 9:27 AM Date of : 1960 Admit Type: Outpatient Age: 63 Gender: Female Attending MD: Christian Zaldivar M.D. Room: [facility] ENDOSCOPY ROOM 03 Note Status: Finalized Procedure: Colonoscopy Indications: Screening for colorectal malignant neoplasm Referring MD: Providers: Christian Zaldivar M.D. Medicines: Monitored Anesthesia Care Complications: No immediate complications. Estimated Blood Loss: Estimated blood loss: none. Procedure: Pre-Anesthesia Assessment: - Prior to the procedure, a History and Physicalwas performed, and patient medications and allergieswere reviewed. The risks and benefits of the procedureand the sedation options and risks were discussed withthe patient. All questions were answered and informed consent was obtained. Patient identification and proposed procedure were verified. After reviewingthe risks and benefits, the patient was deemed in satisfactory condition to undergo the procedure.The anesthesia plan was to use monitored anesthesiacare (MAC). Immediately prior to administration of medications, the patient was re-assessed foradequacy to receive sedatives. The heart rate, respiratory rate, oxygen saturations, blood pressure, adequacyof pulmonary ventilation, and response to care were monitored throughout the procedure. The physical status of the patient was re-assessed after the procedure. The benefits, risks and alternatives of theprocedure and sedation were discussed and informed consentwas obtained. All questions were answered. Please referto the signed informed consent document in the medical record. The scope was passed under direct vision.The [id number] was introduced through theanus and advanced to the cecum, identified byappendiceal orifice and ileocecal valve. The colonoscopy was performed without difficulty. The patient tolerated the procedure well. The quality of the bowel preparation was good. Scope withdrawal time was 13 minutes. Prep was administered in a split dose. Findings: The perianal and digital rectal examinations were normal. A diminutive polyp was found in the ascending colon. The polyp was removed with a cold biopsy forceps. Resection and retrieval were complete. A 20 mm polyp was found at 40 cm proximal to the anus. The polyp was sessile. The polyp was removed with a hot snare. Resection andretrieval were complete. To prevent bleeding post-intervention, one hemostatic clip was successfully placed. There was no bleeding at the end of the procedure. Two sessile polyps were found in the rectum. The polyps were 10 mm in size. These polyps were removed with a hot snare. Resection and retrieval were complete. Non-bleeding internal hemorrhoids were found during retroflexion. The hemorrhoids were small. The exam was otherwise without abnormality. Impression: - One diminutive polyp in the ascending colon,removed with a cold biopsy forceps. Resected andretrieved. - One 20 mm polyp at 40 cm proximal to the anus, removed with a hot snare. Resected and retrieved.Clip was placed. - Two 10 mm polyps in the rectum, removed with ahot snare. Resected and retrieved. - Non-bleeding internal hemorrhoids. - The examination was otherwise normal. Recommendation: - Patient has a contact number available for emergencies. The signs and symptoms of potential delayed complications were discussed with thepatient. Return to normal activities tomorrow. Written discharge instructions were provided to thepatient. - High fiber diet. - Continue present medications. - Await pathology results. - Repeat colonoscopy in 3 years for surveillance. Christian Zaldivar M.D. Christian Zaldivar M.D. 01/23/2024 9:54:15 AM . Number of Addenda: 0 Note Initiated On: 01/23/2024 9:27 AM Recognized by the [employer] [place] [employer] for promoting quality in endoscopy us Christian Zaldivar MD ENDOSCOPY PROCEDURES Final Resul t * CT Chest WO Contrast F/U Lung Screen Protocol (06/11/2023 9:04 AM CDT) Anatomical Region Laterality Modality Chest N/A Computed Tomogra phy 06/11/2023 11:5 2 AM CDT Narrative 06/11/2023 12:02 PM CDT EXAM DESCRIPTION: CT CHEST WO CONTRAST F/U LUNG SCREEN PROTOCOL REASON FOR STUDY: Screening CT of the chest in a former smoker with a 40 pack year smoking history. Additional history: Stopped smoking age 59. TECHNIQUE: Low dose CT scan of the chest was performed without intravenous contrast using helical scanning technique. The exam extends from the lung apices through the lung bases. Automatic exposure control was used as a dose optimization technique. RADIATION DOSE: CT dose index volume (CTDIvol) = 2.89 mGy COMPARISON: CT chest 12/05/2022 FINDINGS: SMOKING RELATED LUNG DISEASE: Minimal emphysema. LUNG NODULES: Unchanged 6 mm solid nodule in the right lower lobe on image 177. Unchanged 5 mm solid nodule in the peripheral right lower lobe on image 172. Unchanged 5 mm nodule abutting the left major fissure on image 117. Unchanged 3 mm solid nodule in the right upper lobe on image 65. No new pulmonary nodules appreciated. CORONARY ARTERY CALCIFICATION: None appreciated. OTHER: No pleural effusion or pneumothorax. There are minimal areas of scarring. The central airways are patent. Heart size is normal. No pericardial effusion or thickening. Thoracic aorta is normal in course and caliber and contains a tiny amount of calcified atherosclerotic plaque. There are no enlarged mediastinal, hilar, or axillary lymph nodes. The visualized portions of the upper abdomen are unremarkable. There is no suspicious osseous lesion. There are mild degenerative changes of the thoracic spine. IMPRESSION: Unchanged pulmonary nodules measuring up to 6 mm. No new pulmonary nodule. Minimal emphysema. Lung-RADS category 2: Benign appearance or behavior. Recommendation: Low dose Screening CT of chest in 12 months. THIS IS AN ELECTRONICALLY VERIFIED FINAL REPORT 06/11/2023 12:02 PM - Electronically signed by Adin Vazquez M.D. AM: AM Report ID: [id number] Reading Location: [place] [address] Procedure Note Adin Vazquez MD - 06/11/2023 EXAM DESCRIPTION: CT CHEST WO CONTRAST F/U LUNG SCREEN PROTOCOL REASON FOR STUDY: Screening CT of the chest in a former smoker with a40 pack year smoking history. Additional history: Stopped smoking age 59. TECHNIQUE: Low dose CT scan of the chest was performed without intravenous contrast using helical scanning technique. The exam extends from the lung apices through the lung bases. Automatic exposure control was used as adose optimization technique. RADIATION DOSE: CT dose index volume (CTDIvol) = 2.89 mGy COMPARISON: CT chest 12/05/2022 FINDINGS: SMOKING RELATED LUNG DISEASE: Minimal emphysema. LUNG NODULES: Unchanged 6 mm solid nodule in the right lower lobe on image 177. Unchanged 5 mm solid nodule in the peripheral right lower lobe on [id number]. Unchanged 5 mm nodule abutting the left major fissure on image 117. Unchanged 3 mm solid nodule in the right upper lobe on image 65. No new pulmonary nodules appreciated. CORONARY ARTERY CALCIFICATION: None appreciated. OTHER: No pleural effusion or pneumothorax. There are minimal areas of scarring. The central airways are patent. Heart size is normal. No pericardial effusion or thickening. Thoracic aorta is normal in courseand caliber and contains a tiny amount of calcified atherosclerotic plaque.There are no enlarged mediastinal, hilar, or axillary lymph nodes. Thevisualized portions of the upper abdomen are unremarkable. There is no suspicious osseous lesion. There are mild degenerative changes of the thoracicspine. IMPRESSION: Unchanged pulmonary nodules measuring up to 6 mm. No newpulmonary nodule. Minimal emphysema. Lung-RADS category 2: Benign appearance or behavior. Recommendation: Low dose Screening CT of chest in 12 months. THIS IS AN ELECTRONICALLY VERIFIED FINAL REPORT 06/11/2023 12:02 PM - Electronically signed by Adin Vazquez M.D. AM: AM Report ID: [id number] Reading Location: [place] [address] Vita Beyer MD IMG CT PROCEDURES Final Resu lt * MAMMOGRAPHY (03/26/2023) Mammography Normal Historical Provider HEALTH MAINTENANCE Final Result * PAP SMEAR WITH HPV (05/08/2015) Pap smear Unknown Historical Provider HEALTH MAINTENANCE Final Result * Serum Hepatitis C ab (10/21/2012 5:45 AM CDT) HCV ab Negative NEG HISTORICAL RESULTS Comment: Interpretive Data If confirmation is required, call Laboratory Customer Service to request sample to be sent to [facility] for Hepatitis C Virus (HCV) RNA Detection and Quantitation by Real-Time Reverse Outside Laborer-PCR (RT-PCR). Current interpretive data was last revised on 2011 Serum 10/21/2012 5:45 AM CDT Narrative HISTORICAL RESULTS - 10/22/2012 5:16 AM CDT Test performed at [facility], [address] [facility] [address], [place], [place], [place], [address]. us Jolie Ho LAB BLOOD ORDERABLES Final Resul t HISTORICAL RESULTS from Last 3 Months or Most Recently Relevant to Health Maintenance Insurance ANTH TRADITIONAL [employer] ACCESS OOS Advance Directives For more information, please contact: [phone] Documents on File Type Date Recorded Patient Service Parts Driver Expl anation ADVANCE DIRECTIVE 02/09/2016 12:00 AM [facility] B[facility]ING SERVICES CLERK FINANCIAL/MEDICAL Care Teams Medical Transcriber Relationship Specialty Start Date End Date Vita Beyer MD [address] [place] [id number] PCP - General 12/05/17 Catrachito Velasco MD [address] [place] [id number] Dermatology 10/28/19 Man Saunders MD [address] [place] [id number] Consulting Physician Obstetrics and Gynecology 10/28/19 Tootie Pinzon MD [address] [facility] [address] [place] [address] Referring Physician Gynecology 11/06/23
--- OUTSIDE RECORDS SUMMARY | 2024-03-27 15:52 | XMS_ITS | Referral Summary ---
Author Organization [facility] Healthcare Address [address] [place] [address] Care Team Providers Care Movie Shot Cameraman Name Role Phone Vita Beyer MD Primary Care Provider [phone] Catrachito Velasco MD Unavailable [phone] Man Saunders MD Unavailable [phone] Tootie Pinzon MD Unavailable [phone] Encounters Date Type Department Care Team Description 01/30/2024 Telephone [facility] Primary Care [address] [place] [phone] Vita Beyer MD 01/23/2024 9:28 AM PRESCHOOL ADVISER Anesthesia Event [facility] [address] [place] [address] Roxana Rice MD Jobe, Jennifer R., CRNA 01/23/2024 9:00 AM PRESCHOOL ADVISER - 01/23/2024 9:30 AM PRESCHOOL ADVISER Surgery [facility] [address] [place] [address] Christian Zaldivar MD COLON REMOVAL SNARE 01/23/2024 7:55 AM PRESCHOOL ADVISER - 01/23/2024 11:10 AM PRESCHOOL ADVISER Hospital Encounter [facility] [address] [place] [address] Christian Zaldivar MD Screening for colon cancer Discharge Disposition: Discharge to home or self care 12/30/2023 Orders Only [facility] Gastroenterology at [address] [place] [address] Christian Zaldivar MD Screening for colon cancer (Primary Dx) 12/26/2023 Telephone [facility] Primary Care [address] [facility] [address] [place] [address] Vita Beyer MD Medication Request from Last 3 Months Allergies Active Allergy Reactions Criticality Noted Date [...] pad Do the kegels Lose weight See JAVA FLEX DEVELOPER Hypertension, essential 10/26/2020 Overview (10/31/2021): July 2020 [...] and establishing or updating healthcare power of commercial attorney document and providing our office with [...] and establishing or updating healthcare power of commercial attorney document and providing our office with [...] please contact the office. I strongly encourage myChart sign ups. It can facilitate communication flow. [...] major pharmacies without a prescription Psoriatic arthritis ([facility]/HCC) 12/18/2016 Overview (10/26/2020): Biological father had DM, [...] Plan (11/06/2023 5:38 PM CDT): Stable Dr Ritchie derm is now managing,stable on rx Skyrizi injections, [...] CDT): Stable on cosentyx therapy Cont under melissa ritchie Benign paroxysmal positional vertigo 07/13/2015 High [...] 10/26/2020 Assessment & Plan (03/09/2020 12:37 PM PRESCHOOL ADVISER): Recovered No more symptoms for over 24 hrs now Quarantined for 2 wks Plans to RTW on 03/14/2020 Letter to rtw on Saturday03/14/[address] Freelance [address] Reporter Fax [phone] Ok to rtw on feb. Full recovered [...] Lumbar disc surgery L3-L5 Dr Causey at [facility] Assessment & Plan (06/09/2018 12:06 PM CDT): resolved Elevated blood pressure read ing without diagnosis of hypertension 07/12/2015 06/09/2018 Pain in the shoulder 07/22/2013 021 Immunizations Name Administration Dates Next Due Influenza, Quadrivalent, Blessing l Culture-based MDCK, Preservative Free, Antibiotic Free, Intramuscular 03/05/2019 Influenza, Quadrivalent, Spl it, Preservative Free, Intramuscular 11/02/2022,10/31/2021,12/11/2017 Influenza, Trivalent, IM (MDV) 12/18/2016 Influenza, Trivalent, Preser vative Free, Intramuscular 11/06/2023,11/15/2015,12/03/2014,12/24,01/19/2013 Moderna SARS-CoV-2 Monovalen t Vaccination (12+ YRS) 04/28/2020,03/31/2020 PPD TEST 03/24/2014 Pneumococcal Conjugate PCV 13 12/20/2015 Pneumococcal Polysaccharide PPV23 01/19/2013,02/2012 Tdap 11/02/2022,08/19/2011 ZOSTER Recombinant 12/28/2019,10/28/2019 Social History Tobacco Use Types Packs/Day Years [...] on file Legal Sex Female 7:39 PM PRESCHOOL ADVISER Gender Identity Female 05/26/2019 9:28 AM CDT Sexual Orientation Straight 05/26/2019 9: 28 AM CDT 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 file Not on file Not on file Last Filed Vital Signs Vital Sign Reading Time Taken Comments Blood Pressure 146/63 01/23/2024 10:30 AM PRESCHOOL ADVISER Pulse 63 01/23/2024 10:30 AM PRESCHOOL ADVISER Temperature 36.2 C (97.2 F) 01/23/2024 9:55 AM PRESCHOOL ADVISER Respiratory Rate 15 01/23/2024 10:30 AM PRESCHOOL ADVISER Oxygen Saturation 99% 01/23/2024 10:30 AM PRESCHOOL ADVISER Inhaled Oxygen Concentration - - Weight 105.7 kg (233 lb) 01/23/2024 8:10 AM PRESCHOOL ADVISER Height 175.3 cm (5' 9 ) 11/06/2023 8:28 AM CDT Body Mass Index 34.41 11/06/2023 8:28 AM CDT Plan of Treatment Not on file Medical Devices Implanted Type Area Treasury Agent Device Identifier Shelf Expiration Date Model / Serial / Lot Cages And Rods In Lumbar L4,5 &S1 N/A: Back Procedures Procedure Name Priority Date/Time Associated Diagnosis Comments SURGICAL PATHOLOGY Routine 01/23/2024 9: 39 AM PRESCHOOL ADVISER Screening for colon cancer ENDO ADD ON COLON BIOPSY 01/23/2024 9:28 AM PRESCHOOL ADVISER Screening for colon cancer COLON REMOVAL SNARE 01/23/2024 9 :28 AM PRESCHOOL ADVISER Screening for colon cancer COLONOSCOPY 01/23/2024 9:[address] CHEST WO CONTRAST F/U LUNG SCREEN PROTOCOL Schedule Routine, Read Routine (OP Routine) 06/11/2023 9:04 AM CDT Cigarette nicotine dependence in remission Lung nodule seen on imaging study HM MAMMOGRAPHY Routine 03/26/2023 PAP SMEAR WITH HPV Routine 05/08/2015 SERUM HEPATITIS C AB Routine 10/21/2012 5:45 AM CDT from Last 3 Months or Most Recently Relevant to Health Maintenance Results * Surgical pathology (01/23/2024 9:39 AM PRESCHOOL ADVISER) Tissue (Colon, Biopsy) 01/23/2024 9:39 AM PRESCHOOL ADVISER Tissue (Polyp(s), colon/colorectal, esophageal, gastric) 01/23/2024 9:46 AM PRESCHOOL ADVISER Tissue (Polyp(s), colon/colorectal, esophageal, gastric) 01/23/2024 9:50 AM PRESCHOOL ADVISER Narrative PATHOLOGY [facility] - 01/24/2024 5:00 PM PRESCHOOL ADVISER [facility] Department of Pathology [address] [place] [address] Note to Patients: This report may contain [...] : 1960 (Age: 63) Gender: F Address: [place] [address] [facility] #: [id number] Service: Gastro Location: Patient Type: [facility] OUTPATIENT Taken: 01/23/2024 Received: 01/23/2024 Accessioned: 01/23/2024 Reported: 01/24/2024 Physician(s): Christian Zaldivar M.D. Vita Beyer M.D. Diagnosis: A. Colon, ascending, polyp, polypectomy: -Tubular adenoma. B. Colon, polyp at 40 cm, polypectomy: -Sessile serrated adenoma/polyp. C. Rectum, polyp x2, polypectomy: -Hyperplastic polyps. Art England MD, PHD Report Electronically Reviewed and Signed [...] cm. Entirely submitted. Labeled C1. Jar 0. jjb/01/23/2024 13:08 SERGE Genao, PA (ASCP) Microscopic slide review and interpretation for this case was performed at [facility], Department of Surgical Pathology, [address] [facility] [place], [place] [id number], [place] [address] CLIA # [id number] us Christian Zaldivar MD LAB PATHOLOGY ORDERABLES Final R esult PATHOLOGY [facility] * Colonoscopy (01/23/2024 9:27 AM PRESCHOOL ADVISER) Anatomical Region Laterality Modality Other Narrative Procedure Note Christian Zaldivar MD - 01/23/2024 9:27 AM CST [facility] GI ENDOSCOPY Patient Name: Ruthie Eddy Procedure Date: 01/23/2024 9:27 AM Date of : 1960 Admit Type: Outpatient Age: 63 Gender: Female Attending MD: Christian Zaldivar M.D. Room: [facility] ENDOSCOPY ROOM 03 Note Status: Finalized Procedure: [...] The scope was passed under direct vision.The [id number] was introduced through theanus and advanced to [...] On: 01/23/2024 9:27 AM Recognized by the [employer] for promoting quality [...] Adin Vazquez M.D. AM: AM Report ID: [id number] Reading Location: [id number] Procedure Note Adin Vazquez MD - 06/11/2023 [...] in the peripheral right lower lobe on . Unchanged 5 mm nodule abutting the left [...] Adin Vazquez M.D. AM: AM Report ID: [id number] Reading Location: [place] [address] Vita Beyer MD IMG CT PROCEDURES Final Resu lt * HM MAMMOGRAPHY (03/26/2023) Mammography Normal Historical Provider HEALTH MAINTENANCE Final Result * PAP SMEAR WITH HPV (05/08/2015) Pap smear Unknown Historical Provider HEALTH MAINTENANCE Final Result * Serum Hepatitis C ab (10/21/2012 5:45 AM CDT) HCV ab Negative NEG HISTORICAL RESULTS Comment: Interpretive Data If confirmation is required, call Laboratory Customer Service to request sample to be sent to [facility] for Hepatitis C Virus (HCV) RNA Detection and Quantitation by Real-Time Reverse Manager Occupational-PCR (RT-PCR). Current interpretive data was last revised on 2011 Serum 10/21/2012 5:45 AM CDT Narrative HISTORICAL RESULTS - 10/22/2012 5:16 AM CDT Test performed at [facility], [address] [facility], [place], [place], [place], [address]. 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
--- OUTSIDE RECORDS SUMMARY | 2024-03-27 15:52 | XMS_ITS | Clinical Summary ---
Author Organization [facility] Address [address] [place] [address] Care Team Providers Care Air Route Controller Name Role Phone Unavailable Primary Care Provider Unavailabl e Source Comments [facility],non-owned Affiliates and Associated Physician Practices is amultiple site organization consisting of ambulatory clinics and hospital sitesin [place], [place], [place] and [place]. This disclosure is being madepursuant to the Care Everywhere program and may not contain all information available regarding this patient. Last updated 17.[employer] [facility] Allergies No known active allergies Medications * [...] Comments Blood Pressure 136/84 04/24/2019 3:03 PM LEGAL EXECUTIVE Pulse 94 04/24/2019 3:03 PM LEGAL EXECUTIVE Temperature 36.8 C (98.2 F) 04/24/2019 3:03 PM LEGAL EXECUTIVE Respiratory Rate 20 04/24/2019 3:03 PM LEGAL EXECUTIVE Oxygen Saturation 98% 04/24/2019 3:03 PM LEGAL EXECUTIVE Inhaled Oxygen Concentration - - Weight 97.5 kg (215 lb) 04/24/2019 3:03 PM LEGAL EXECUTIVE Height 175.3 cm (5' 9 ) 04/24/2019 3:03 PM LEGAL EXECUTIVE Body Mass Index 31.75 04/24/2019 3:03 PM LEGAL EXECUTIVE Plan of Treatment Health Maintenance Due Date Last Done Comments NEHA (AGES 45-75) - COLON CA SCREENING 1960 COLON MONITORING 1960 COLONOSCOPY - COLON CA SCREENING 1962 CT COLONOGRAPHY - COLON CA SCREENING 1960 Colorectal Cancer Screening 1960 FIT - COLON CA SCREENING 1960 FLEX SIG - COLON CA SCREENING 1960 LIPID TESTING 1960 MAMMOGRAM 1960 PAP SMEAR 1962 HIV SCREENING 1977 HEPATITIS C SCREENING 06/23/1980 DTAP/TDAP/TD VACCINES (1 - Tdap) 1981 PNEUMOCOCCAL VACCINE 50+ (1 of 2 - PCV) 1981 PNEUMOCOCCAL VACCINE (1 of 2 - PCV) 1981 ZOSTER VACCINE (1 of 2) 2012 SCREENING FOR DIABETES 04/24/2019 COVID-19 VACCINE (1 - 2023- season) 2023 INFLUENZA VACCINE (#1) 2023 8, 12/18/2016, 12/03/2014, Additional history exists DEPRESSION SCREENING 02/19/2024 Respiratory Syncytial Virus (RSV) Vaccine Pt: or over 60 yrs (1 - 1-dose 75+ series) 2037 HEPATITIS B VACCINE Aged Out No longe r eligible based on patient's age to complete this topic HIB VACCINE Aged Out No longer eligi ble based on patient's age to complete this topic HPV VACCINE Aged Out No longer eligi ble based on patient's age to complete this topic MENINGOCOCCAL (Group B) VACCINE Aged Out No longer eligible based on patient's age to complete this topic MENINGOCOCCAL VACCINE Aged Out No roman gerald eligible based on patient's age to complete this topic
--- OUTSIDE RECORDS SUMMARY | 2024-03-27 15:52 | XMS_ITS | Clinical Summary ---
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 Gender Identity Not on file Sexual Orientation Not on file Plan of Treatment Health Maintenance Due Date Last Done Comments Hepatitis C Virus (HCV) Screening 1960 TdaP Immunization 1960 Pap Smear 06/29/1983 Cervical Cancer Screening (CCS) 1992 HPV/Cotest 1992 Colonoscopy 06/29/2007 Colorectal Cancer Screening 06/29/2007 Cologuard 2012 Immunochemical Fecal Occult Blood 2012 Mammogram 2012 Pneumococcal Immunization (5 0+ years) (1 of 1 - PCV) 2012 Influenza Immunization (#1) 2023 12/11/2017 SARS-COV-2 Immunization (25 season) 2023 Respiratory Syncytial Virus (RSV) Immunization (Adult) (1 - 1-dose 75+ series) 2037 Zoster Immunization Completed 12/28/2019, 10/28/2019 Hepatitis B Immunization Aged Out No longer eligible based on patient's age to complete this topic Meningococcal Immunization (ACWY) Aged Out No longer eligible b ased on patient's age to complete this topic Pneumococcal Immunization Combined Aged Out No longer eligible b ased on patient's age to complete this topic Rotavirus Immunization Aged Out No lo nger eligible based on patient's age to complete this topic
--- OUTSIDE RECORDS SUMMARY | 2024-03-27 15:52 | XMS_ITS | Encounter Summary ---
Author Organization [facility] Facility Care Team Providers Care Location And Measurement Technician Name Role Phone Vita Beyer MD Primary Care Provider [phone] Vita Beyer MD Unavailable [phone] Catrachito Velasco MD Unavailable [phone] Man Saunders MD Unavailable [phone] Tootie Pinzon MD Unavailable [phone] Encounter Details Date Type Department Care Team (Latest Contact Info) Description 05/18/2014 Orders Only [facility] CLINCONV ProviderBrennen MD [address] [place] [address] Social History Tobacco Use Types Packs/Day Years Used Date Smoking Tobacco: Never Assessed Comments Unknown Sex and Gender Information Value Date Recorded Sex Assigned at Not on file 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 Historical Provider Final Res ult documented in this encounter Visit Diagnoses Not on filedocumented in this encounter Additional Health Concerns Infection Onset Date Last Indicated Resolved Time COVID: Suspected 05/26/2019 05/26/2019 05/27/2019 8:35 AM CDT Respiratory Infection (JOSEPH), contact + droplet Comment:Automatically added due to negative COVID-19 result. 05/27/2019 05/27/2019 06/10/2019 3:0 5 AM CDT documented as of this encounter Care Teams Location And Measurement Technician Relationship Specialty Start Date End Date Vita Beyer MD [address] [place] [address] PCP - General 12/05/17 Vita Beyer MD [address] [place] [address] 12/05/17 10/27/19 Catrachito Velasco MD [address] [place] [phone] Dermatology 10/28/19 Man Saunders MD [address] [place] [address] Consulting Physician Obstetrics and Gynecology 10/28/19 Tootie Pinzon MD [address] [facility] [address] [place] [address] Referring Physician Gynecology 11/06/23 documented as of this encounter
--- OUTSIDE RECORDS SUMMARY | 2024-03-27 15:52 | XMS_ITS | Encounter Summary ---
Author Organization [facility] Facility Care Team Providers Care Senior Piping Designer Name Role Phone Vita Beyer MD Primary Care Provider [phone] Vita Beyer MD Unavailable [phone] Catrachito Velasco MD Unavailable [phone] Man Saunders MD Unavailable [phone] Tootie Pinzon MD Unavailable [phone] Encounter Details Date Type Department Care Team (Latest Contact Info) Description 07/26/2015 Orders Only [facility] CLINCONV ProviderBrennen MD [address] [place] [address] Social History Tobacco Use Types Packs/Day Years Used Date Smoking Tobacco: Never Assessed Comments Unknown Sex and Gender Information Value Date Recorded Sex Assigned at Not on file 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 Gender Identity Female 05/26/2019 9:28 AM CDT Sexual Orientation Straight 05/26/2019 9: 28 AM CDT documented as of this encounter Plan of Treatment Not on file documented as of this encounter Procedures Procedure Name Priority Date/Time Associated Diagnosis Comments SCAN - LABS 07/28/2015 12:00 AM CDT documented in this encounter Results * SCAN - LABS (07/28/2015 12:00 AM CDT) Narrative 07/28/2015 12:00 AM CDT Ordered by an unspecified [...] documented as of this encounter Care Teams Senior Piping Designer Relationship Specialty Start Date End Date Vita Beyer MD [address] [place] [address] PCP - General 12/05/17 Vita Beyer MD [address] [place] [address] 12/05/17 10/27/19 Catrachito Velasco MD [address] [place] [phone] Dermatology 10/28/19 Man Saunders MD [address] [place] [address] Consulting Physician Obstetrics and Gynecology 10/28/19 Tootie Pinzon MD [address] [facility] [address] [place] [address] Referring Physician Gynecology 11/06/23 documented as of this encounter
== END 2024-03-27 15:46 | disposition home or self-care (01) ==
PROVIDERS: PCP Internal Medicine; Visit Provider Nurse Practitioner Women's Health
DX: Z12.31 Encounter for screening mammogram for malignant neoplasm of breast (principal)
CPT/HCPCS: 77063; 77067

== ENCOUNTER 2025-01-22 14:18 | Outpatient (CLI) | payer BC, SELFPAY ==
--- NOTE | ~2025-01-22 | CT_ITS ---
EXAMINATION: CT soft tissue neck w con DATE: 01/22/2025 14:49 INDICATION: Other diseases of salivary glands. TECHNIQUE: Computed tomography (CT) of the neck was performed with 75 mL Omnipaque-350 intravenous contrast. Automated exposure control and iterative reconstruction technique were employed. The dose-length product was 585.21 mGy-cm. COMPARISON: None FINDINGS: A skin marker overlies left parotid gland. There are small sialoliths in the left parotid gland. There is mild fat stranding adjacent to the left parotid gland inferiorly, consistent with parotiditis. There are no pathologically enlarged lymph nodes. There are nodules in the thyroid measuring up to 14 mm, likely not clinically significant. The mastoid air cells are normal. There is mild mucosal thickening in the ethmoid sinuses. There is moderate cervical spondylosis. IMPRESSION: 1. Mild left-sided parotiditis. Small sialoliths in left parotid gland. Reviewed, dictated and finalized at location E. PROCESSOR
[2025-01-22 14:42] LABS: Estimated Glomerular Filt Rate 56
== END 2025-01-22 14:19 | disposition home or self-care (01) ==
PROVIDERS: PCP Internal Medicine; Visit Provider Otolaryngology
DX: K11.5 Sialolithiasis (principal)
CPT/HCPCS: 70491; Q9967